=== PATIENT | female | born 1955 | race Caucasian/White ===

== ENCOUNTER 2019-02-10 07:45 | Day surgery (SDC) | payer OTHER ==
[~2019-02-10 07:45] MED LIST: ALBU90OI INH; ALENDRONATE SOD35 MG PO; Aspir 8181 MG PO; CENTRUM SILVER1 EAC3 PO; FAMO20 PO; LEVFLO500 PO; LEVO-T25 MCG PO; META800 PO; PHENA200 PO; PRAV20 PO; RALO60; Vitamin D2000 UNIT PO
== END 2019-02-10 22:38 | disposition home or self-care (01) ==
LOC: MOI US 07:45 → MOI MAM 08:15 → MOI US 22:38
DX: D24.1 Benign neoplasm of right breast (principal); E78.5 Hyperlipidemia, unspecified; E03.9 Hypothyroidism, unspecified; G47.33 Obstructive sleep apnea (adult) (pediatric); E55.9 Vitamin D deficiency, unspecified; J45.909 Unspecified asthma, uncomplicated; K21.9 Gastro-esophageal reflux disease without esophagitis; G89.29 Other chronic pain; M54.9 Dorsalgia, unspecified; Z88.1 Allergy status to other antibiotic agents; Z88.8 Allergy status to other drugs, medicaments and biological substances; Z79.82 Long term (current) use of aspirin; Z79.899 Other long term (current) drug therapy; Z85.3 Personal history of malignant neoplasm of breast
CPT/HCPCS: 19083; 77065; 88305; 88342; A4648

== ENCOUNTER 2019-03-14 07:39 | Day surgery (SDC) | payer OTHER | END 2019-03-14 23:08 | disposition home or self-care (01) | LOC: MOI US 07:39 | DX: N63.10 Unspecified lump in the right breast, unspecified quadrant (principal) | CPT/HCPCS: 19285; 77065 ==

== ENCOUNTER 2019-03-18 08:45 | Day surgery (SDC) | payer OTHER ==
[~2019-03-18] VITALS: Ht 167.6 cm; Wt 106.8 kg
--- NOTE | 2019-03-18 13:52 | NUR ---
03/18/19 1352 Elliott Kimble ALL NURSING ENTRIES BY ORD.LMA WERE ACTUALLY ENTERED BY ORD.AMADOR.
== END 2019-03-18 15:43 | disposition home or self-care (01) ==
LOC: ORSCMMR 08:45 → RAD 08:45
PROVIDERS: Surgery
PROC: 0HBT0ZX Excision of Right Breast, Open Approach, Diagnostic (ICD-10-PCS; principal; 2019-03-18 10:30)
DX: D24.1 Benign neoplasm of right breast (principal); N60.81 Other benign mammary dysplasias of right breast; E66.9 Obesity, unspecified; E03.9 Hypothyroidism, unspecified; G47.33 Obstructive sleep apnea (adult) (pediatric); K21.9 Gastro-esophageal reflux disease without esophagitis; E78.00 Pure hypercholesterolemia, unspecified; J45.909 Unspecified asthma, uncomplicated; Z88.8 Allergy status to other drugs, medicaments and biological substances; Z91.040 Latex allergy status; Z79.82 Long term (current) use of aspirin; Z79.899 Other long term (current) drug therapy; Z99.89 Dependence on other enabling machines and devices; Z68.39 Body mass index [BMI] 39.0-39.9, adult
CPT/HCPCS: 76098; 88307; A9270-GY; J0690; J2250; J2405; J2704; J3010; J7120

== ENCOUNTER → 2019-11-02 | Outpatient (CLI) | payer OTHER | LOC: LAB SHORT 16:32 → LAB EV 16:32 | DX: N39.0 Urinary tract infection, site not specified (principal) | CPT/HCPCS: 87077; 87086; 87186 ==

== ENCOUNTER → 2020-07-29 | Outpatient (CLI) | payer OTHER | END | disposition home or self-care (01) | LOC: LAB SHORT 15:58 → LAB 15:58 | DX: L03.031 Cellulitis of right toe (principal) | CPT/HCPCS: 87070; 87205 ==

== ENCOUNTER 2024-02-25 07:16 | Day surgery (SDC) | payer MEDICARE, OTHER ==
[~2024-02-25] VITALS: Ht 165.1 cm; Wt 103.2 kg
[2024-02-25] MEDS ORDERED: Lactated Ringer's 1,000 ML IV ONE ×2 (07:34→08:18)
[2024-02-25] MEDS ORDERED: ALENDRONATE SOD35 MG (07:34)
[2024-02-25] MEDS ORDERED: propofoL 50 ML IV ONE (07:49)
[2024-02-25 09:37] VITALS: BP 118/61
== END 2024-02-25 09:47 | disposition home or self-care (01) ==
LOC: ORSCSDS 07:16
PROVIDERS: Surgery
PROC: 0DJD8ZZ Inspection of Lower Intestinal Tract, Via Natural or Artificial Opening Endoscopic (ICD-10-PCS; principal; 2024-02-25 08:45)
DX: Z12.11 Encounter for screening for malignant neoplasm of colon (principal); Z86.0101 Personal history of adenomatous and serrated colon polyps; K57.30 Diverticulosis of large intestine without perforation or abscess without bleeding; D50.9 Iron deficiency anemia, unspecified; E78.5 Hyperlipidemia, unspecified; G47.33 Obstructive sleep apnea (adult) (pediatric); J44.9 Chronic obstructive pulmonary disease, unspecified; E11.9 Type 2 diabetes mellitus without complications; E03.9 Hypothyroidism, unspecified; E66.9 Obesity, unspecified; Z68.37 Body mass index [BMI] 37.0-37.9, adult; Z79.82 Long term (current) use of aspirin; Z79.899 Other long term (current) drug therapy
CPT/HCPCS: J2704; J7120